=== PATIENT | female | born 1945 | race Caucasian/White ===

== ENCOUNTER 2018-04-30 10:31 | Inpatient (IN) | payer OTHER ==
[2018-04-30 12:08] LABS: ADD MAN DIFF? NO
[2018-04-30 12:14] LABS: BASO # 0.1 x10^3/uL (0.0-0.2); BASO % 1 % (0-3); EOS # 0.6 x10^3/uL (0.0-0.7); EOS % 6 % (0-3); HEMATOCRIT 42.3 % (36.0-47.0); HEMOGLOBIN 14.3 g/dL (12.0-15.5); LYMPH # 2.1 x10^3/uL (1.0-4.8); LYMPH % 22 % (24-48); MEAN CORPUSCULAR HEMOGLOBIN 30 pg (25-35); MEAN CORPUSCULAR HGB CONC 34 g/dL (31-37); MEAN CORPUSCULAR VOLUME 90 fL (79-100); MONO # 0.7 x10^3/uL (0.0-1.1); MONO % 7 % (0-9); NEUT # 6.3 x10^3uL (1.8-7.7); NEUT % 64 % (31-73); PLATELET COUNT 280 x10^3/uL (140-400); RED BLOOD COUNT 4.72 x10^6/uL (3.50-5.40); RED CELL DISTRIBUTION WIDTH 14.4 % (11.5-14.5); WHITE BLOOD COUNT 9.8 x10^3/uL (4.0-11.0)
[2018-04-30 12:38] LABS: D-DIMER 0.36 ug/mlFEU (0.00-0.50)
[2018-04-30 12:39] LABS: TROPONINI < 0.017 ng/mL (0.000-0.055)
[2018-04-30 12:42] LABS: ALBUMIN 3.5 g/dL (3.4-5.0); ALBUMIN/GLOBULIN RATIO 1.1 (1.0-1.7); ALK PHOS 117 U/L (46-116); ALT (SGPT) 29 U/L (14-59); ANION GAP 7 (6-14); AST (SGOT) 17 U/L (15-37); BLOOD UREA NITROGEN 11 mg/dL (7-20); BUN/CREATININE RATIO 12 (6-20); CALCIUM 9.1 mg/dL (8.5-10.1); CARBON DIOXIDE 33 mmol/L (21-32); CHLORIDE 102 mmol/L (98-107); CREATININE 0.9 mg/dL (0.6-1.0); GFR 61.2; GLUCOSE 119 mg/dL (70-99); POTASSIUM 3.4 mmol/L (3.5-5.1); SODIUM 142 mmol/L (136-145); TOTAL BILIRUBIN 0.5 mg/dL (0.2-1.0); TOTAL PROTEIN 6.8 g/dL (6.4-8.2)
[2018-04-30 12:51] LABS: NT-PRO BNP 194 pg/mL (0-124)
[2018-04-30 12:54] LABS: THYROID STIM HORMONE (TSH) 1.018 uIU/mL (0.358-3.74)
[2018-04-30] MEDS: cefTRIAXone IV Push 1 GM VIAL. IVP (14:04)
[2018-04-30] MEDS: LACTOBACILLUS RHAMNOSUS GG 1 CAPSULE. PO (16:00)
[2018-04-30] MEDS: MULTIVITAMIN with MINERAL TABLET. PO (16:00)
[2018-04-30] MEDS: PANTOPRAZOLE 40 MG TABLET.DR. PO (16:00)
[2018-04-30] MEDS: ASPIRIN ENTERIC COATED 81 MG TABLET.DR. PO (16:00)
[2018-04-30] MEDS: FUROSEMIDE 20 MG TABLET PO (17:19)
[2018-04-30] MEDS: predniSONE 10 MG TABLET PO (17:19)
[2018-04-30] MEDS: IPRATRPIUM/ALBUTEROL 0.5/2.5MG 3 ML NEBU. NEB ×2 (17:41→19:52)
[2018-05-01] MEDS: NAPROXEN 500 MG TABLET PO (00:22)
[2018-05-01] MEDS: IPRATRPIUM/ALBUTEROL 0.5/2.5MG 3 ML NEBU. NEB ×5 (00:26→23:17)
[2018-05-01] MEDS: predniSONE 10 MG TABLET PO (09:14)
[2018-05-01] MEDS: PANTOPRAZOLE 40 MG TABLET.DR. PO (09:14)
[2018-05-01] MEDS: MULTIVITAMIN with MINERAL TABLET. PO (09:15)
[2018-05-01] MEDS: LACTOBACILLUS RHAMNOSUS GG 1 CAPSULE. PO (09:15)
[2018-05-01] MEDS: FUROSEMIDE 20 MG TABLET PO ×2 (09:15→15:12)
[2018-05-01] MEDS: ASPIRIN ENTERIC COATED 81 MG TABLET.DR. PO (09:15)
[2018-05-01] MEDS: POTASSIUM CHLORIDE 10 MEQ TABLET.ER. PO ×2 (12:04→17:41)
[2018-05-01] MEDS: cefTRIAXone IV Push 1 GM VIAL. IVP (15:12)
[2018-05-01] MEDS: NYSTATIN 100,000 UNIT/GM TOPICAL CREAM 15GM TUBE. TP ×2 (16:30→21:00)
[2018-05-01] MEDS ORDERED: ASA/APAP/CAFFEINE 250/250/65MG TABLET. PO (22:30)
[2018-05-01] MEDS: FLUTICASONE 50MCG/NASAL SPRAY 16GM BOTTLE. NS (22:37)
[2018-05-02] MEDS: IPRATRPIUM/ALBUTEROL 0.5/2.5MG 3 ML NEBU. NEB ×4 (07:38→23:18)
[2018-05-02] MEDS: POTASSIUM CHLORIDE 10 MEQ TABLET.ER. PO ×3 (08:03→17:25)
[2018-05-02] MEDS: LACTOBACILLUS RHAMNOSUS GG 1 CAPSULE. PO (08:03)
[2018-05-02] MEDS: MULTIVITAMIN with MINERAL TABLET. PO (08:03)
[2018-05-02] MEDS: PANTOPRAZOLE 40 MG TABLET.DR. PO (08:04)
[2018-05-02] MEDS: ASPIRIN ENTERIC COATED 81 MG TABLET.DR. PO (08:04)
[2018-05-02] MEDS: predniSONE 10 MG TABLET PO ×2 (08:04→08:32)
[2018-05-02] MEDS: NYSTATIN 100,000 UNIT/GM TOPICAL CREAM 15GM TUBE. TP ×2 (08:07→22:08)
[2018-05-02] MEDS: FUROSEMIDE 20 MG TABLET PO ×2 (08:07→14:58)
[2018-05-02] MEDS: FLUTICASONE 50MCG/NASAL SPRAY 16GM BOTTLE. NS (08:07)
[2018-05-02] MEDS: cefTRIAXone IV Push 1 GM VIAL. IVP (14:58)
[2018-05-03] MEDS: IPRATRPIUM/ALBUTEROL 0.5/2.5MG 3 ML NEBU. NEB (07:33)
[2018-05-03] MEDS: NYSTATIN 100,000 UNIT/GM TOPICAL CREAM 15GM TUBE. TP (09:00)
[2018-05-03] MEDS: FLUTICASONE 50MCG/NASAL SPRAY 16GM BOTTLE. NS (09:00)
[2018-05-03] MEDS: PANTOPRAZOLE 40 MG TABLET.DR. PO (09:17)
[2018-05-03] MEDS: FUROSEMIDE 20 MG TABLET PO (09:17)
[2018-05-03] MEDS: LACTOBACILLUS RHAMNOSUS GG 1 CAPSULE. PO (09:17)
[2018-05-03] MEDS: ASPIRIN ENTERIC COATED 81 MG TABLET.DR. PO (09:17)
[2018-05-03] MEDS: MULTIVITAMIN with MINERAL TABLET. PO (09:18)
[2018-05-03] MEDS: CEFPODOXIME PROXETIL 100 MG TABLET. PO (09:18)
== END 2018-05-03 11:20 | disposition home or self-care (01) | DRG 202 ==
LOC: 6 SOUTH 10:31
DX: J20.9 Acute bronchitis, unspecified (principal); J44.1 Chronic obstructive pulmonary disease with (acute) exacerbation; J44.0 Chronic obstructive pulmonary disease with (acute) lower respiratory infection; I48.91 Unspecified atrial fibrillation; Z16.29 Resistance to other single specified antibiotic; Z88.0 Allergy status to penicillin; Z88.2 Allergy status to sulfonamides; Z88.8 Allergy status to other drugs, medicaments and biological substances; Z99.81 Dependence on supplemental oxygen
CPT/HCPCS: 36415; 71046; 80053; 83880; 84443; 84484; 85025; 85379; 93005; 94618; 94640; 94760; G0238; J0696; J7512; J7620